=== PATIENT | female | born 1950 | race Caucasian/White ===

== ENCOUNTER 2016-03-14 10:26 | Outpatient (CLI) ==
[2012-08-09 14:56] VITALS: BP 120/70; TEMP 98
[2016-02-26 10:54] VITALS: BMI 33.3
--- NOTE | 2016-03-14 11:50 | US ---
EXAM: Ultrasound chest wall. HISTORY: Cyst of skin and subcutaneous tissue. Palpable and visible knots of the back. FINDINGS: Cuadra-scale ultrasound and color Doppler imaging was performed in the regions of interest described as the mid back. There were three nodular masses identified superficially in the regions of palpable abnormality. Th brody measured 3.9 x 1.9 x 3.9, 2.3 x 2.0 x 2.7 and 0.8 x 0.5 x 0.8 cm. These nodules have similar ap pearance (heterogeneous, relatively well circumscribed, slightly lobulated with no definite internal blood flow, positive posterior acoustic enhancement with a few small internal anechoic spaces). Etiology is uncertain although considerations would include a sebaceous cyst, hematomas or abscesses . Partially necrotic metastases less likely although not excluded. Correlate with clinical present ation and patient history. If more sensitive imaging diagnosis is indicated, consider correlation w ith enhanced CT or MRI. IMPRESSION: Three nodular collections or masses identified in the regions of interest as described.
== END 2016-03-14 10:27 | disposition home or self-care (01) ==
LOC: RAD 10:26
PROVIDERS: ATTEND General Practice
DX: L72.9 Follicular cyst of the skin and subcutaneous tissue, unspecified (principal)

== ENCOUNTER 2016-03-19 09:29 | Day surgery (SDC) ==
[2016-02-26 10:54] VITALS: BMI 33.3
[2016-03-19] MEDS ORDERED: LIDOCAINE 1%-EPI 1:100,000 10 ML (SURGERY) INJ ONE (10:40)
[2016-03-19 11:29] VITALS: BP 130/86; TEMP 98.7
--- NOTE | 2016-03-20 13:59 | OP ---
HISTORY OF PRESENT ILLNESS: 66 year old female patient was seen at the office as a referral of the [facility], Akilah Brenner. The patient had a sores in the back for about six weeks. She presented to [place] emergency room and was told that it would need a surgeon. She was prescribed antibiotics and also presented to [facility]. She was again advised that it needs to have a surgeon to incise and drain at the emergency room. The patient had three rounds of antibiotics when I saw her. The last antibiotic was Bactrim DS. An ultrasound showed four areas of collection or nodular areas. Upper larger lesion had begun to drain. The patient was scheduled for surgery after the ultrasound. PHYSICAL EXAMINATION: GENERAL: The patient today is alert with no distress. Her color is good and she denies any chest pain, abdominal pain, headaches or dizziness. FACE: Symmetrical and equal with no facial weakness. NECK: No masses. No bruit. LUNGS: Clear to auscultation in both sides. HEART: Audible and regular with good tones. No murmurs. ABDOMEN: Nontender. SKIN: The area in the back was inspected. It appeared more fluctuant than when I first saw her. Her medications were reviewed. ASSESSMENT: SEBACEOUS CYSTS TIMES TWO MIDBACK AREA, ONE LOWER SMALLER, UPPER AND LATERAL BIGGER. PLAN: INCISION AND DRAINAGE AND PACKING UNDER LOCAL ANESTHESIA This patient was advised about the need for further follow up of the area. This might produce scarring more than expected. PREOPERATIVE DIAGNOSIS: SEBACEOUS CYSTS, MULTIPLE MIDBACK AREA. MEDIAL AND LATERAL LEFT OF THE SPINE OPERATION: INCISION AND DRAINAGE TIMES TWO, UPPER AND LOWER. CULTURE AND SENSITIVITY SEPARATELY. POSTOPERATIVE DIAGNOSIS: SAME. SURGEON: GIOVANY CORRAL M.D. RUBY ON RAILS DEVELOPER: ANATOLIY NAVA OPERATION: The patient in a left lateral decubitus position was then prepped and draped for surgery. The area was anesthetized initially beginning with the smaller lower one. A transverse incision was then made until the cavity was entered and purulent material exuded, plus chunky whitish greyish material. Culture and sensitivity before aerobes and anaerobes were done. The area was then irrigated with Betadine and Saline. A spoon was used to remove the rest of the material in the cavity. There is some necrotic tissue in the cavity. The bigger lesion was then incised transversely carried into the pocket until purulent drainage exuded. The incision was then extended and a vertical incision was made. The cavity was irrigated with saline followed by Betadine and saline. A spoon was inserted to remove some of the remaining chunky material. The cavity was again irrigated with Betadine, followed with Saline. Both cavities were packed with 1/2 inch nu gauze. The patient tolerated the procedure well and no antibiotic is given. This patient is to see me this coming and before if there is any problem. ORI
[2016-03-24 19:07] LABS: ANAEROBIC CULTURE Final report (.)
[2016-03-24 19:07] LABS: ANAEROBIC CULTURE Final report (.)
[2016-03-25 08:57] LABS: ANAEROBIC CULTURE RESULT 1 Finegoldia magna (.)
[2016-03-25 08:57] LABS: ANAEROBIC CULTURE RESULT 1 Finegoldia magna (.)
== END 2016-03-19 11:40 | disposition home or self-care (01) ==
LOC: SURG 09:29
PROVIDERS: ATTEND General Practice
DX: L72.3 Sebaceous cyst (principal)
CPT/HCPCS: 10061; 36415; 87070; 87075

== ENCOUNTER 2016-03-25 11:13 | Outpatient (CLI) ==
[2012-08-09 14:56] VITALS: TEMP 98
[2016-02-26 10:54] VITALS: BMI 33.3
--- NOTE | 2016-03-25 11:38 | DI ---
EXAM: Two views of the left hip. History: Left hip pain. Findings: Osteopenia. No acute fracture or dislocation. No abnormal calcifications or radiopaque foreign bodies. The left hip joint space is preserved. Impression: No acute osseous abnormality and no significant degenerative joint disease of the left hip. Osteopenia.
== END 2016-03-25 11:14 | disposition home or self-care (01) ==
LOC: RAD 11:13
PROVIDERS: ATTEND General Practice
DX: M25.552 Pain in left hip (principal)

== ENCOUNTER 2016-05-02 10:59 | Emergency (ER) ==
[2016-05-02 11:03] VITALS: BP 113/74; TEMP 99.4; BMI 34.7
--- NOTE | 2016-05-02 11:13 | ED.PDOC ---
General ED Provider: Dr. ROBERT MEYER JR Chief Complaint: Respiratory Complaint Stated Complaint: COUGH GREEN, TEMP,CONGESTED RUNNY NOSE [End]2 days 99.4 117 20 94% 113/74 09/16 Time Seen by Physician: 11:12 Mode of Arrival: Walk-In Information Source: Patient Exam Limitations: No limitations Primary Care Provider: NICHOLAS GAXIOLA Nursing and Triage Documentation Reviewed and Agree: No Review of Systems - Review Of Systems Constitutional: Reports: Malaise, Weakness Eyes: Reports: No symptoms Ears, Nose, Mouth, Throat: Reports: Nose discharge, Throat pain Respiratory: Reports: Cough Cardiac: Reports: No symptoms GI: Reports: No symptoms : Reports: No symptoms Musculoskeletal: Reports: No symptoms Skin: Reports: No symptoms Neurological: Reports: No symptoms, Other (hx right leg weakness with cva) Endocrine: Reports: No symptoms Hematologic/Lymphatic: Reports: No symptoms All Other Systems: Other Past Medical History - Past Medical History Previously Healthy: Yes Endocrine: Reports: None Cardiovascular: Reports: Hypertension Respiratory: Reports: COPD Hematological: Reports: None Gastrointestinal: Reports: None Genitourinary: Reports: None Neuro/Psych: Reports: CVA, Anxiety, Depression Musculoskeletal: Reports: None Cancer: Reports: None Last Menstrual Period: NONE - Surgical History General Surgical History: Reports: Unknown - Family History Family History: Reports: Unknown - Social History Smoking Status: Never smoker Hx Substance Use: No Alcohol Screening: None Physical Exam - Physical Exam Appearance: Ill-appearing, Obese Ill-appearing: Moderate Pain Distress: Moderate Eyes: CASSIDY, EOMI, Conjunctiva inflammed ENT: Rhinorrhea, Erythema Neck: Supple Respiratory: Airway patent, Rhonchi, Wheezes Cardiovascular: RRR, Pulses normal, No rub, No murmur GI/: Soft, Nontender, No masses, Bowel sounds normal, No Organomegaly Musculoskeletal: Normal strength, ROM intact, No edema, No calf tenderness Skin: Warm, Dry, Normal color Neurological: Sensation intact, Motor intact, Reflexes intact, Cranial nerves intact, Alert, Oriented Psychiatric: Affect appropriate, Mood appropriate, Depressed (tearful descibing care of in [facility] and granddaughter- left by mother) Critical Care Note - Critical Care Note Total Time (mins): 0 Course - Course Orders, Labs, Meds: Orders Category Date Time Status Ceftriaxone Sodium [Rocephin] MEDS 05/02/16 11:24 Stat 1 gm IM ONCE STA Lidocaine HCl/Pf [Lidocaine 1 % Amp 5 ml (Sutures)] MEDS 05/02/16 11:24 Stat 2.1 ml IM ONCE STA Methylprednisolone Sod Succ/Pf [Solu-Medrol 125 mg] MEDS 05/02/16 11:24 Stat 125 mg IM ONCE STA Vital Signs: Temp Pulse Resp BP Pulse Ox 05/02/16 10:59 99.4 F 117 H 20 113/74 94 L Departure - Departure Time of Disposition: 11:24 Disposition: HOME SELF-CARE Discharge Problem: Bronchitis, URTI (acute upper respiratory infection) Instructions: Upper Respiratory Infection (ED), Abscess Follow-up (ED), Acute Bronchitis (ED) Condition: Good Pt referred to PMD for follow-up: Yes Additional Instructions: amocxil for one week robitussin DM or robitussin AC for cough recommend daily dressing change after cleansing area Prescriptions: Amoxicillin [Amoxil] 500 mg PO TID #21 capsule Guaifenesin/Codeine Phosphate [Robitussin AC Syrup] 10 ml PO Q6H PRN #240 ml PRN Reason: Cough Allergies/Adverse Reactions: Allergies meperidine [From Demerol] Adverse Reaction (Verified 05/02/16 11:03) oxycodone [From Percocet] Adverse Reaction (Verified 05/02/16 11:03) tramadol HCl [From Ultram] Adverse Reaction (Verified 05/02/16 11:03) Home Medications: Ambulatory Orders Alprazolam [Xanax] 0.5 mg PO TID PRN 01/30/14 Aspirin [Aspirin EC] 81 mg PO DAILYWM 01/30/14 Citalopram Hydrobromide [Celexa] 20 mg PO DAILY 01/30/14 Clopidogrel Bisulfate [Plavix] 75 mg PO DAILY 01/30/14 Enalapril Maleate [Vasotec] 10 mg PO DAILY 01/30/14 Omeprazole [Prilosec] 40 mg PO DAILY 01/30/14 Pravastatin Sodium [Pravachol] 20 mg PO BEDTIME 01/30/14 Verapamil HCl [Verapamil ER] 240 mg PO DAILY 01/30/14 Acetaminophen with Codeine [Tylenol With Codeine #3 Tablet] 1 each PO TID PRN Amoxicillin [Amoxil] 500 mg PO TID #21 capsule 05/02/16 Guaifenesin/Codeine Phosphate [Robitussin AC Syrup] 10 ml PO Q6H PRN #240 ml
[2016-05-02] MEDS ORDERED: ROCEPHIN IM STA (11:24)
[2016-05-02] MEDS ORDERED: SOLU-MEDROL 125 MG IM STA (11:24)
[2016-05-02] MEDS ORDERED: LIDOCAINE 1 % AMP 5 ML (SUTURES) IM STA (11:24)
== END 2016-05-02 12:11 | disposition home or self-care (01) ==
LOC: ED 10:59
DX: J20.9 Acute bronchitis, unspecified (principal); J06.9 Acute upper respiratory infection, unspecified; Z79.899 Other long term (current) drug therapy
CPT/HCPCS: 96372; 99282

== ENCOUNTER 2016-09-25 11:45 | Emergency (ER) | payer OTHER ==
[2016-09-25 11:51] VITALS: BP 131/76; TEMP 100.8; BMI 33.3
[2016-09-25 13:15] LABS: BASOPHILS # (AUTO) 0.1 K/uL (0-0.2); BASOPHILS % (AUTO) 0.8 % (0.0-3.0); EOSINOPHILS # (AUTO) 0.1 K/ul (0.0-0.7); EOSINOPHILS % (AUTO) 1.4 % (0.0-7.0); HEMATOCRIT 41.6 % (37.0-47.0); HEMOGLOBIN 14.2 g/dl (12.0-16.0); IMMATURE GRANULOCYTE % (AUTO) 0.2 % (0.0-5.0); LYMPHOCYTES # (AUTO) 1.8 K/uL (0.60-3.4); LYMPHOCYTES % (AUTO) 28.5 (10.0-50.0); MEAN CORPUSCULAR HGB CONC 34.1 (31.8-35.4); MEAN CORPUSCULAR VOLUME 85.1 fl (81.0-99.0); MONOCYTES # (AUTO) 0.7 K/uL (0.4-2.0); MONOCYTES % (AUTO) 11.4 (0-10); NEUTROPHILS # (AUTO) 3.6 K/ul (2.0-6.9); NEUTROPHILS % (AUTO) 57.7; PLATELET COUNT 251 10^3/uL (140-440); RED BLOOD COUNT 4.89 10^6/ul (4.20-5.40); WHITE BLOOD COUNT 6.22 K/ul (4.6-10.2)
[2016-09-25 13:29] LABS: BILIRUBIN,URINE Negative (NEGATIVE); KETONES,URINE Negative (NEGATIVE); LEUKOCYTE ESTERASE ,URINE 3+ (NEGATIVE); NITRITE,URINE Negative (NEGATIVE); PH,URINE 5.5 (5-9); PROTEIN,URINE Negative (NEGATIVE); URINE, BLOOD Negative (NEGATIVE)
[2016-09-25 13:35] LABS: ALBUMIN 4.2 g/dL (3.4-5.0); ALBUMIN/GLOBULIN RATIO 1.4; ANION GAP 16.9; BILIRUBIN,TOTAL 0.62 mg/dL (0.00-1.20); BUN/CREATININE RATIO 15.21; CALCIUM 9.4 mg/dL (8.2-10.2); CREATININE 0.92 mg/dL (0.60-1.30); POTASSIUM 3.9 mmol/L (3.5-5.10); TOTAL PROTEIN 7.2 g/dL (5.8-8.1)
[2016-09-25 13:36] LABS: ADD URINE MICROSCOPIC YES
[2016-09-25 13:37] LABS: BACTERIA,URINE 1+ (NOT PRESENT)
--- NOTE | 2016-09-25 14:16 | CT ---
EXAM: CT BRAIN HISTORY: Headache TECHNIQUE: CT brain without intravenous contrast. 5-mm axial sections with Reformations. COMPARISON: 01/18/2012 FINDINGS: There is mild generalized atrophy. Mild to moderate chronic microvascular disease. Tiny lacunar in farction right caudate nucleus. There is a focal region of encephalomalacia left frontal parietal j unction consistent with old infarction. These findings are stable. Brain otherwise is unremarkabl e without distinct evidence of hemorrhage or large vessel distribution recent ischemic infarction. There is no suggestion of acute hydrocephalus or subdural fluid collection. No mass or mass effect. Cranium is within normal limits. Mastoid air cells are aerated. The visualized paranasal sinuses are clear. IMPRESSION: No acute intracranial process.
--- NOTE | 2016-09-25 14:25 | ED.PDOC ---
General ED Provider: Dr. KATIE MARTINEZ Chief Complaint: Headache Stated Complaint: headache Time Seen by Physician: 12:00 (headache flaoters right left eye) Mode of Arrival: Walk-In Information Source: Patient Exam Limitations: No limitations Primary Care Provider: NICHOLAS GAXIOLA Nursing and Triage Documentation Reviewed and Agree: Yes (eye floaters are chronic issue for pt x 30 years ) Neurological Complaint Exam - Headache Complaint/Exam Onset: Gradual Duration: 1 day was mowing and became over heated Symptoms Are: Resolved Timing: Intermittent Episodes Lasting: Hours Worst Headache Ever: No Initial Severity: Moderate Current Severity: None Character: Reports: Dull Aggravating: Reports: None Alleviating: Reports: None Associated Signs and Symptoms: Denies: Dizziness, Seizure, Nausea, Vomiting, Sinus pressure, Fever, Neck pain, Neck stiffness, Decreased LOC, Visual changes Related History: Reports: Similar episode Related Surgical History: Reports: None SAH Risk Factors: Reports: None Meningitis Risk Factors: Reports: None SDH Risk Factors: Reports: None Temporal Arteritis Risk Factors: Reports: None Normal Head CT Within Last 12 Months: Yes Fundoscopic Exam: Present: Normal Findings Papilledema Present: No Temporal Artery Tenderness: Present: None Sinus Tenderness: Present: None TMJ Tenderness: Present: None Glascow Coma Scale (see protocol): 15 Meningeal Signs Positive: No Pain on Passive Flexion-Positive Kernig's: No ROM Limited In: No Limitiations Focal Weakness: Present: None Focal Sensory Loss: Present: None Gait: Normal Differential Diagnoses: Migraine Review of Systems - Review Of Systems Constitutional: Reports: No symptoms Eyes: Reports: No symptoms Ears, Nose, Mouth, Throat: Reports: No symptoms Respiratory: Reports: No symptoms Cardiac: Reports: No symptoms GI: Reports: No symptoms : Reports: No symptoms Musculoskeletal: Reports: No symptoms Skin: Reports: No symptoms Neurological: Reports: No symptoms Endocrine: Reports: No symptoms Hematologic/Lymphatic: Reports: No symptoms All Other Systems: Reviewed and Negative Past Medical History - Past Medical History Previously Healthy: Yes Endocrine: Reports: None Cardiovascular: Reports: Hypertension Respiratory: Reports: COPD Hematological: Reports: None Gastrointestinal: Reports: None Genitourinary: Reports: None Neuro/Psych: Reports: CVA, Anxiety, Depression Musculoskeletal: Reports: None Cancer: Reports: None Last Menstrual Period: menopause - Surgical History General Surgical History: Reports: Unknown - Family History Family History: Reports: Unknown - Social History Smoking Status: Never smoker Hx Substance Use: No Alcohol Screening: None Physical Exam - Physical Exam Appearance: Well-appearing, No pain distress, Well-nourished Eyes: CASSIDY, EOMI, Conjunctiva clear ENT: Ears normal, Nose normal, Oropharynx normal Respiratory: Airway patent, Breath sounds clear, Breath sounds equal, Respirations nonlabored Cardiovascular: RRR, Pulses normal, No rub, No murmur GI/: Soft, Nontender, No masses, Bowel sounds normal, No Organomegaly Musculoskeletal: Normal strength, ROM intact, No edema, No calf tenderness Skin: Warm, Dry, Normal color Neurological: Sensation intact, Motor intact, Reflexes intact, Cranial nerves intact, Alert, Oriented Psychiatric: Affect appropriate, Mood appropriate Interpretation - Radiology Interpretation Radiology Interpretation By: Radiologist Radiology Results: No acute changes Critical Care Note - Critical Care Note Total Time (mins): 0 Course - Course Hematology/Chemistry: 09/25/16 13:10 09/25/16 13:10 Orders, Labs, Meds: Lab Review 09/25/16 09/25/16 13:10 13:12 WBC 6.22 RBC 4.89 Hgb 14.2 Hct 41.6 MCV 85.1 MCH 29.0 MCHC 34.1 RDW Coeff of Noe 13.0 Plt Count 251 Immature Gran % (Auto) 0.2 Neut % (Auto) 57.7 Lymph % (Auto) 28.5 [place] % (Auto) 11.4 H Eos % (Auto) 1.4 Baso % (Auto) 0.8 Immature Gran # (Auto) 0.0 Neut # 3.6 Lymph # 1.8 [place] # 0.7 Eos # 0.1 Baso # 0.1 Sodium 141 Potassium 3.9 Chloride 106 Carbon Dioxide 22 L Anion Gap 16.9 BUN 14 Creatinine 0.92 Estimated GFR (MDRD) 61.00 BUN/Creatinine Ratio 15.21 Glucose 102 Lactic Acid 7.4 Calcium 9.4 Total Bilirubin 0.62 AST 18 ALT 18 Alkaline Phosphatase 59 Total Protein 7.2 Albumin 4.2 Globulin 3.0 Albumin/Globulin Ratio 1.40 Procalcitonin < 0.05 Urine Color Yellow Urine Clarity Slightly Urine pH 5.5 Ur Specific [place] 1.010 Urine Protein Negative Urine Glucose (UA) Negative Urine Ketones Negative Urine Blood Negative Urine Nitrite Negative Urine Bilirubin Negative Urine Urobilinogen 1.0 Ur Leukocyte Esterase 3+ Urine Microscopic RBC 2-5 Urine Microscopic WBC 5-10 Ur Squamous Epith Cells 5-10 Amorphous Sediment 1+ Urine Bacteria 1+ Hyaline Casts 0-2 Orders Category Date Time Status EKG-(ED ONLY) Stat CARDIO 09/25/16 12:33 Completed BLOOD CULTURE Stat LAB 09/25/16 13:10 Received CBC W/ AUTO DIFF Stat LAB 09/25/16 13:10 Completed COMPREHENSIVE METABOLIC PANEL Stat LAB 09/25/16 13:10 Completed EHRLICHIA DNA, PCR Stat LAB 09/25/16 13:10 Received LACTIC ACID Stat LAB 09/25/16 13:10 Completed LYME, WESTERN BLOT, SERUM Stat LAB 09/25/16 13:10 Received PROCALCITONIN Stat LAB 09/25/16 13:10 Completed URINALYSIS C & S IF INDICATED Stat LAB 09/25/16 13:12 Completed URINE CULTURE Stat LAB 09/25/16 13:[address] HEAD W/O CONTRAST Stat RADS 09/25/16 13:[address] IAC/ORBIT/P.FOSSA W/O CONTR Stat RADS 09/25/16 13:32 Ordered Vital Signs: Temp Pulse Resp BP Pulse Ox 09/25/16 11:46 100.8 F H 98 H 20 131/76 96 Departure - Departure Time of Disposition: 14:25 Disposition: HOME SELF-CARE Discharge Problem: Headache Instructions: Acute Headache (ED) Condition: Good Pt referred to PMD for follow-up: No Additional Instructions: Please call your Family Physician as soon as possible to schedule a follow-up appointment.Please call your Family Physician as soon as possible to schedule a follow-up appointment. Allergies/Adverse Reactions: Allergies meperidine [From Demerol] Adverse Reaction (Verified 09/25/16 11:53) oxycodone [From Percocet] Adverse Reaction (Verified 09/25/16 11:53) tramadol HCl [From Ultram] Adverse Reaction (Verified 09/25/16 11:53) Home Medications: Ambulatory Orders Alprazolam [Xanax] 0.5 mg PO TID PRN 01/30/14 Aspirin [Aspirin EC] 81 mg PO DAILYWM 01/30/14 Citalopram Hydrobromide [Celexa] 20 mg PO DAILY 01/30/14 Clopidogrel Bisulfate [Plavix] 75 mg PO DAILY 01/30/14 Enalapril Maleate [Vasotec] 10 mg PO DAILY 01/30/14 Omeprazole [Prilosec] 40 mg PO DAILY 01/30/14 Pravastatin Sodium [Pravachol] 20 mg PO BEDTIME 01/30/14 Verapamil HCl [Verapamil ER] 240 mg PO DAILY 01/30/14 Guaifenesin/Codeine Phosphate [Robitussin AC Syrup] 10 ml PO Q6H PRN #240 ml
--- NOTE | 2016-09-25 14:30 | CT ---
EXAM: CT scan of the orbits without contrast HISTORY: Eye floaters TECHNIQUE: Helical imaging of the orbits was performed without contrast. 2 mm thin axial images an d coronal and sagittal images in bone windows were provided for interpretation. Additional axial sof t tissue images were provided. FINDINGS: No definite soft tissue masses are seen. There is a normal appearance of the retro-orbit al fat. No acute abnormalities are seen within the visualized extraocular musculature. The periorb ital soft tissues are normal. The paranasal sinuses and mastoid air cells are clear. The visualized skull base appears normal. The orbital floor, inferior orbital rim appear intact. No acute abnorma lities are seen within the medial and lateral chaudhary of the orbits. IMPRESSION: No acute abnormalities are seen within the orbits.
[2016-09-27 03:53] LABS: IGG P18 AB Absent (.); IGG P23 AB Absent (.); IGG P28 AB Absent (.); IGG P30 AB Absent (.); IGG P39 AB Absent (.); IGG P41 AB Present (.); IGG P45 AB Absent (.); IGG P58 AB Absent (.); IGG P66 AB Present (.); IGG P93 AB Absent (.); IGM P39 AB Absent (.); IGM P41 AB Present (.)
[2016-09-27 10:13] LABS: LYME IGG WB INTERP Negative (.); LYME IGM WB INTERP Negative (.)
== END 2016-09-25 14:50 | disposition home or self-care (01) ==
LOC: ED 11:45
DX: R51 Headache (principal); I10 Essential (primary) hypertension; J44.9 Chronic obstructive pulmonary disease, unspecified; Z86.73 Personal history of transient ischemic attack (TIA), and cerebral infarction without residual deficits; Z79.899 Other long term (current) drug therapy
CPT/HCPCS: 36415; 80053; 81001; 83605; 84145; 85025; 86617; 87040; 87086; 87798; 93005; 93010; 99283

== ENCOUNTER 2016-11-14 11:34 | Emergency (ER) ==
[2016-11-14 11:39] VITALS: BP 122/74; TEMP 97.9; BMI 33.6
--- NOTE | 2016-11-14 12:00 | ED.PDOC ---
General ED Provider: Dr. KEON CARRANZA Chief Complaint: Sore Throat Stated Complaint: Hoarse x 3-4 days, sore throat since awakening this AM. Exposed to strep 4 days ago. Time Seen by Physician: 11:50 Mode of Arrival: Walk-In Information Source: Patient Exam Limitations: No limitations Primary Care Provider: NICHOLAS GAXIOLA Nursing and Triage Documentation Reviewed and Agree: Yes Review of Systems - Review Of Systems Constitutional: Reports: No symptoms Eyes: Reports: No symptoms Ears, Nose, Mouth, Throat: Reports: Throat pain Respiratory: Reports: No symptoms Cardiac: Reports: No symptoms GI: Reports: No symptoms Musculoskeletal: Reports: No symptoms Skin: Reports: No symptoms Neurological: Reports: No symptoms Hematologic/Lymphatic: Reports: No symptoms All Other Systems: Reviewed and Negative Past Medical History - Past Medical History Previously Healthy: Yes Endocrine: Reports: None Cardiovascular: Reports: Hypertension Respiratory: Reports: COPD Hematological: Reports: None Gastrointestinal: Reports: None Genitourinary: Reports: None Neuro/Psych: Reports: CVA, Anxiety, Depression Musculoskeletal: Reports: None Cancer: Reports: None Last Menstrual Period: N/A - Surgical History General Surgical History: Reports: Unknown - Family History Family History: Reports: Unknown - Social History Smoking Status: Never smoker Hx Substance Use: No Alcohol Screening: None - Immunizations Tetanus Shot up to Date: No Physical Exam - Physical Exam Appearance: Well-appearing Eyes: CASSIDY, EOMI, Conjunctiva clear ENT: Ears normal, Nose normal, Oropharynx normal, Erythema Neck: Supple Respiratory: Airway patent, Breath sounds clear, Breath sounds equal, Respirations nonlabored Cardiovascular: RRR, Pulses normal, No rub, No murmur GI/: Soft, Nontender, No masses, Bowel sounds normal, No Organomegaly Skin: Warm, Dry, Normal color Neurological: Sensation intact, Motor intact, Reflexes intact, Cranial nerves intact, Alert, Oriented Psychiatric: Affect appropriate, Mood appropriate Critical Care Note - Critical Care Note Total Time (mins): 0 Course - Course Orders, Labs, Meds: Orders Category Date Time Status STREP SCREEN Stat LAB 11/14/16 11:45 Ordered result: negative Vital Signs: Temp Pulse Resp BP Pulse Ox 11/14/16 11:35 97.9 F 66 20 122/74 98 Departure - Departure Time of Disposition: 12:50 Disposition: HOME SELF-CARE Discharge Problem: Sore throat symptom, Viral pharyngitis Discharge Problem: (Ruled Out): Otitis media Instructions: Pharyngitis (ED) Condition: Good Pt referred to PMD for follow-up: No (see PCP if no better in 3 days) Allergies/Adverse Reactions: Allergies meperidine [From Demerol] Adverse Reaction (Verified 11/14/16 11:38) oxycodone [From Percocet] Adverse Reaction (Verified 11/14/16 11:38) tramadol HCl [From Ultram] Adverse Reaction (Verified 11/14/16 11:38) Home Medications: Ambulatory Orders Alprazolam [Xanax] 0.5 mg PO TID PRN 01/30/14 Aspirin [Aspirin EC] 81 mg PO DAILYWM 01/30/14 Citalopram Hydrobromide [Celexa] 20 mg PO DAILY 01/30/14 Clopidogrel Bisulfate [Plavix] 75 mg PO DAILY 01/30/14 Enalapril Maleate [Vasotec] 10 mg PO DAILY 01/30/14 Omeprazole [Prilosec] 40 mg PO DAILY 01/30/14 Pravastatin Sodium [Pravachol] 20 mg PO BEDTIME 01/30/14 Verapamil HCl [Verapamil ER] 240 mg PO DAILY 01/30/14
== END 2016-11-14 13:05 | disposition home or self-care (01) ==
LOC: ED 11:34
DX: J02.9 Acute pharyngitis, unspecified (principal)
CPT/HCPCS: 87651; 87880; 99283

== ENCOUNTER 2017-03-04 13:23 | Outpatient (CLI) | payer OTHER ==
[2012-08-09 14:56] VITALS: TEMP 98
--- NOTE | 2017-03-04 14:31 | US ---
EXAM: Ultrasound bilateral carotid duplex. HISTORY: Carotid artery stenosis. COMPARISON: 04/09/2012. TECHNIQUE: Multiple madrigal scale and color Doppler images were obtained. FINDINGS: Please note that estimates of internal carotid artery stenoses are based upon NASCET crite terra. Right carotid: Mild plaquing noted without 50% or greater stenosis. Peak systolic velocity measurem ent in the right internal carotid artery is 1.0 meters per second. Right internal to common carotid artery peak systolic velocity ratio measures 1.3. End diastolic velocity measurement in the right in ternal carotid artery is 0.3 meters per second. Flow in the right vertebral artery is antegrade. Left carotid: Mixed plaquing without 50% or greater stenosis. Peak systolic velocity measurement in the left internal carotid artery is 0.7 meters per second. Left internal to common carotid artery p eak systolic velocity ratio measures 0.8. End diastolic velocity measurement in the left internal ca rotid artery measures 0.2 meters per second. Flow in the left vertebral artery is antegrade. IMPRESSION: 1. No evidence for 50% or greater stenosis in the right or left internal carotid artery. 2. Antegrade flow in both vertebral arteries.
== END 2017-03-04 13:24 | disposition home or self-care (01) ==
LOC: RAD 13:23
PROVIDERS: ATTEND Physician Assistant Medical
DX: I65.29 Occlusion and stenosis of unspecified carotid artery (principal)

== ENCOUNTER 2017-05-15 08:16 | Day surgery (SDC) ==
[2017-05-15 08:52] VITALS: TEMP 97.2
[2017-05-15] MEDS ORDERED: LIDOCAINE 1%-EPI 1:100,000 10 ML (SURGERY) INJ ONE (09:20)
[2017-05-15 10:03] VITALS: BP 136/62
--- NOTE | 2017-05-21 11:21 | OP ---
DATE OF PROCEDURE: 05/16/17 INDICATIONS: 67-year-old female is scheduled for excision of lesions times two. This patient was advised about the possibility of infection following surgery. PREOPERATIVE DIAGNOSES: 1. Pigmented lesion, posterolateral chest along the posterior axillary line. 2. Subcutaneous mass to the left of the T12 or L1. It is firm and smooth with maybe an opening of the skin most likely a cyst. POSTOPERATIVE DIAGNOSES: 1. Pigmented lesion left posterolateral chest excised, two cysts to the left of T12 or L1 level, cyst, sebaceous. DESCRIPTION OF PROCEDURE: With the patient in the prone position, she was prepped and draped for surgery. The area that is anesthetized with 1% Xylocaine and excised elliptically. The edges were then approximated with 4-0 Vicryl and Steri-Strips. The area then in the T12-11 or L1 area was then anesthetized and incision was made over to the cyst wall. The cyst was then dissected both superiorly and inferiorly until it was completely removed. The bleeders were cauterized. The area was irrigated with Betadine followed by Saline and then approximated with 4-0 Vicryl and Steri -Strips. The patient tolerated the procedure well and was advised to see me in one week at the office or before if there are any signs of infection such as pain, drainage or swelling. ORI
== END 2017-05-16 10:30 | disposition home or self-care (01) ==
LOC: SURG 08:16
PROVIDERS: ATTEND General Practice
DX: L72.3 Sebaceous cyst (principal); L72.0 Epidermal cyst
CPT/HCPCS: 11402

== ENCOUNTER 2017-06-10 14:16 | Outpatient (CLI) | payer OTHER ==
[2012-08-09 14:56] VITALS: TEMP 98
== END 2017-06-10 14:17 | disposition home or self-care (01) ==
LOC: FCC-LAB 14:16
PROVIDERS: ATTEND General Practice
DX: L02.91 Cutaneous abscess, unspecified (principal)
CPT/HCPCS: 87070

== ENCOUNTER 2017-07-17 08:52 | Outpatient (CLI) ==
[2012-08-09 14:56] VITALS: TEMP 98
== END 2017-07-17 08:53 | disposition home or self-care (01) ==
LOC: CAR 08:52
PROVIDERS: ATTEND General Practice
DX: R00.2 Palpitations (principal); I10 Essential (primary) hypertension
CPT/HCPCS: 93227

== ENCOUNTER 2017-07-24 16:11 | Outpatient (CLI) | payer OTHER ==
[2012-08-09 14:56] VITALS: TEMP 98
== END 2017-07-24 16:12 | disposition home or self-care (01) ==
LOC: FCC-LAB 16:11
PROVIDERS: ATTEND General Practice
DX: I10 Essential (primary) hypertension (principal); I47.9 Paroxysmal tachycardia, unspecified; I20.9 Angina pectoris, unspecified; Z79.899 Other long term (current) drug therapy
CPT/HCPCS: 36415

== ENCOUNTER 2017-07-31 10:57 | Outpatient (CLI) | payer OTHER ==
[2012-08-09 14:56] VITALS: TEMP 98
--- NOTE | 2017-07-31 11:34 | CT ---
EXAM: CT head without contrast. HISTORY: Transient cerebral ischemia. COMPARISON: 09/25/2016. TECHNIQUE: Multiple axial images of the brain were obtained from the skull base through the vertex w ithout intravenous contrast. Multiplanar reformats were provided. FINDINGS: There is no intracranial hemorrhage or extraaxial collection. The madrigal-white differentiat ion is maintained without evidence for acute large vascular territory infarction. Focal encephalomal acia in the left parietal lobe is stable. There is a new focus of encephalomalacia in the posterior left temporal lobe on axial image 15 although this is new from prior examination. Old lacunar infarc tions in the bilateral basal ganglia and left cerebellum are stable. There are areas of periventricu lar and subcortical white matter low attenuation. The cortical sulci and cerebral ventricles are sym metrically enlarged. The basal cisterns are well visualized. There is no hydrocephalus, mass effect , or midline shift. The paranasal sinuses and mastoid air cells are clear. The calvarium is intact. IMPRESSION: 1. No acute intracranial hemorrhage or large vascular territory infarction. Consider MRI if there is concern for acute infarction. 2. Interval development of encephalomalacia in the left posterior temporal lobe since the prior stud y. Otherwise stable chronic areas of ischemia and atrophy.
== END 2017-07-31 10:58 | disposition home or self-care (01) ==
LOC: RAD 10:57
PROVIDERS: ATTEND Physician Assistant Medical
DX: G45.8 Other transient cerebral ischemic attacks and related syndromes (principal)

== ENCOUNTER 2017-08-05 12:02 | Outpatient (CLI) ==
[2012-08-09 14:56] VITALS: TEMP 98
--- NOTE | 2017-08-05 13:26 | MRI ---
EXAM: MRI brain without IV contrast. DATE: 05 Aug 2017. HISTORY: TIA. Trouble saying words that she is thinking. TECHNIQUE: Sagittal T1W, axial T2W, axial FLAIR, axial T1W, axial DWI, and coronal T2W GRE sequences of the brain were obtained using 1.2 Niyah magnet. No IV contrast. COMPARISON: CT head 31 Jul 2017. MRI brain 11 August 2014. FINDINGS: The ventricles are normal in size and configuration. Sylvian fissures are mildly prominen t. CSF spaces overlying the superior vertex of the brain are mildly enlarged. Some frontal and hilda etal lobe sulci are slightly prominent. No midline shift, mass effect or loculated extra-axial fluid collection is apparent. A 8 x 18 x 15 mm, DWI bright focus in the left occipital lobe near the temp oral occipital junction is new since previous MRI. No other DWI bright signal abnormalities are obse rved. No acute hemorrhage or neoplasm is identified. Small, confluent rim of T2W/FLAIR hyperintensi ty is observed in the white matter abutting each lateral ventricle. Multiple other 2 mm to 2 cm, T2W /FLAIR bright foci scattered in the garland radiata, centrum semiovale and subcortical white matter ar e similar to August 2014. Chronic bilateral caudate and left frontal parietal garland radiata infarcts are redemonstrated. The madrigal - white matter differentiation is otherwise normal. Several 2-5 mm, T2 W/FLAIR bright foci are demonstrated in the lexie. The 7th/8th cranial nerve complexes, cerebellopont ine angles, and visible cervical spinal cord are normal. There is no cerebellar tonsillar ectopia. The pituitary gland is normal in size and signal. Corpus callosum is normal in size and configuratio n. Flow voids are present in the major intracranial arteries and in the dural venous sinuses. No an eurysm, AVM or dural venous sinus thrombosis is apparent. Appearance of the lens of each eye suggest s prior cataract surgery. No other orbit abnormality is identified. Right mastoid air cells are unr emarkable. A few inferior left mastoid air cells have T2W bright, T1W intermediate signal. There is minor mucosal thickening within multiple ethmoid air cells. No paranasal sinus opacification or air- fluid level is revealed. No neck mass or lymphadenopathy is detected. Marked thickening of the inne r table of the frontal bone appears benign. There is also benign calcification along the anterior as pect of the falx cerebri. No calvarial neoplasm or acute fracture is evident. Slight flattened appe arance of the superior aspect of left mandibular condyle could reflect minor TMJ disease. IMPRESSIONS: 1. Acute, nonhemorrhagic infarct near the temporo-occipital junction. No midline shift or herniatio n. 2. 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 3. No acute hemorrhage, neoplasm or hydrocephalus. 4. Moderate cerebral and minor brainstem leukomalacia - likely a small vessel disease versus chronic hypertensive encephalopathy. 5. Minor bilateral ethmoid sinus mucosal disease. 6. Marked hyperostosis frontalis interna (benign). 7. Minor left mastoid air cells effusion vs mastoiditis. Critical result: Report called to Akilah Brenner at 1313 hrs, 05 Aug 2017.
--- NOTE | 2017-08-05 13:27 | DEXA ---
EXAM: Bone densitometry. History: Postmenopausal. Findings: Evaluation of the lumbar spine reveals a total bone mineral density of 1.018 grams per centimeter squ ared with T-score of negative 1.4. Evaluation of the left hip reveals a total bone mineral density of 0.891 grams per centimeter squared with T-score of negative 0.9. T-score within the left femoral neck region is negative 1.7. Evaluation of the right hip reveals a total bone mineral density of 0.885 grams per centimeter square d with T-score of negative 1.0. T-score within the right femoral neck region is negative 1.7. Impression: 1. Normal total bone mineral density of the lumbar spine and bilateral hips. 2. Focal osteopenia within the bilateral femoral neck regions
== END 2017-08-05 12:03 | disposition home or self-care (01) ==
LOC: RAD 12:02
PROVIDERS: ATTEND Physician Assistant Medical
DX: Z78.0 Asymptomatic menopausal state (principal); G45.8 Other transient cerebral ischemic attacks and related syndromes

== ENCOUNTER 2017-09-22 09:47 | Outpatient (CLI) ==
[2012-08-09 14:56] VITALS: TEMP 98
== END 2017-09-22 09:48 | disposition home or self-care (01) ==
LOC: LAB 09:47
PROVIDERS: ATTEND General Practice
DX: I10 Essential (primary) hypertension (principal); I47.9 Paroxysmal tachycardia, unspecified; I63.9 Cerebral infarction, unspecified; E66.9 Obesity, unspecified; Z79.899 Other long term (current) drug therapy
CPT/HCPCS: 36415; 80053; 80061; 81001; 83525; 85025; 87086

== ENCOUNTER 2017-10-06 14:43 | Outpatient (CLI) ==
[2012-08-09 14:56] VITALS: TEMP 98
== END 2017-10-06 14:44 | disposition home or self-care (01) ==
LOC: FCC-LAB 14:43
PROVIDERS: ATTEND General Practice
DX: Z79.899 Other long term (current) drug therapy (principal)
CPT/HCPCS: 81001

== ENCOUNTER 2017-10-09 11:15 | Emergency (ER) ==
[2017-10-09 11:34] VITALS: BP 136/77; TEMP 99.5; BMI 33.9
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
== END 2017-10-09 12:45 | disposition home or self-care (01) ==
LOC: ED 11:15
DX: M54.2 Cervicalgia (principal); R51 Headache; S09.90XA Unspecified injury of head, initial encounter; S13.9XXA Sprain of joints and ligaments of unspecified parts of neck, initial encounter; V89.2XXA Person injured in unspecified motor-vehicle accident, traffic, initial encounter
CPT/HCPCS: 99283

== ENCOUNTER 2018-01-26 13:20 | Outpatient (CLI) | payer OTHER ==
[2012-08-09 14:56] VITALS: TEMP 98
--- NOTE | 2018-01-26 13:48 | US ---
EXAM: Nonvascular ultrasound of the left upper extremity. History: Left forearm palpable abnormality. Technique: Multiple sonographic images through the left forearm were obtained. Color duplex Doppler was used to interrogate vascular flow. Findings: No masses, cysts or fluid collections identified. Impression: No sonographic abnormalities
== END 2018-01-26 13:21 | disposition home or self-care (01) ==
LOC: RAD 13:20
PROVIDERS: ATTEND Physician Assistant Medical
DX: L72.0 Epidermal cyst (principal)
CPT/HCPCS: 76882

== ENCOUNTER 2018-03-19 16:33 | Emergency (ER) ==
[2018-03-19 16:37] VITALS: BP 128/85; TEMP 97.9; BMI 34.7
--- NOTE | 2018-03-19 18:19 | ED.PDOC ---
General ED Provider: Dr. KATIE MARTINEZ Chief Complaint: Fall Stated Complaint: fall, head injury Time Seen by Physician: 16:34 Mode of Arrival: Walk-In Information Source: Patient Exam Limitations: No limitations Primary Care Provider: NICHOLAS GAXIOLA Nursing and Triage Documentation Reviewed and Agree: Yes Does patient meet sepsis criteria?: No System Inflammatory Response Syndrome: Not Applicable Sepsis Protocol: For patient's 13 years and over: Temp is 96.8 and below OR 101 and greater Pulse >90 BPM Resp >20/minute Acutely Altered Mental Status Are patient's symptoms suggestive of a new infection, such as: -Pneumonia -Skin, Soft Tissue -Endocarditis -UTI -Bone, Joint Infection -Implantable Device -Acute Abdominal Infection -Wound Infection -Meningitis -Blood Stream Catheter Infection -Unknown Trauma/Injury Complaint Exam - Trauma Complaint/Exam Location of Pain or Injury: Reports: Head, Neck Mechanism of Injury: Reports: Fall Onset/Duration: today Symptoms Are: Still present Timing of Treatment: Immediate Initial Severity: Mild Current Severity: Mild Character: Reports: Aching Aggravating: Reports: None Alleviating: Reports: None Associated Signs and Symptoms: Denies: LOC, Confusion, Memory loss, Lethargy, Vomiting, Bleeding, Bruising, Swelling, Extremity disuse, Painful respiration, Hoarseness, Dysphagia, Hemoptysis, Significant blood loss Related Surgical History: Reports: None Nexus Low Risk Criteria: No post-midline CS tender, No evidence of intoxicat., No Altered LOC, No focal neuro deficit, No distracting injuries Immobilization Removed Post Exam: No Glascow Coma Scale (see protocol): 15 Review of Systems - Review Of Systems Constitutional: Reports: No symptoms Eyes: Reports: No symptoms Ears, Nose, Mouth, Throat: Reports: No symptoms Respiratory: Reports: No symptoms Cardiac: Reports: No symptoms GI: Reports: No symptoms : Reports: No symptoms Musculoskeletal: Reports: Neck pain Skin: Reports: No symptoms Neurological: Reports: Headache Endocrine: Reports: No symptoms Hematologic/Lymphatic: Reports: No symptoms All Other Systems: Reviewed and Negative Past Medical History - Past Medical History Previously Healthy: Yes Endocrine: Reports: None Cardiovascular: Reports: Hypertension Respiratory: Reports: COPD Hematological: Reports: None Gastrointestinal: Reports: None Genitourinary: Reports: None Neuro/Psych: Reports: CVA, Anxiety, Depression Musculoskeletal: Reports: None Cancer: Reports: None Last Menstrual Period: n/a - Surgical History General Surgical History: Reports: Unknown - Family History Family History: Reports: Unknown - Social History Smoking Status: Never smoker Hx Substance Use: No Alcohol Screening: None Physical Exam - Physical Exam Appearance: Well-appearing, No pain distress, Well-nourished Eyes: CASSIDY, EOMI, Conjunctiva clear ENT: Ears normal, Nose normal, Oropharynx normal Respiratory: Airway patent, Breath sounds clear, Breath sounds equal, Respirations nonlabored Cardiovascular: RRR, Pulses normal, No rub, No murmur GI/: Soft, Nontender, No masses, Bowel sounds normal, No Organomegaly Musculoskeletal: Normal strength, ROM intact, No edema, No calf tenderness Skin: Warm, Dry, Normal color Neurological: Sensation intact, Motor intact, Reflexes intact, Cranial nerves intact, Alert, Oriented Psychiatric: Affect appropriate, Mood appropriate Interpretation - Radiology Interpretation Radiology Interpretation By: Radiologist Critical Care Note - Critical Care Note Total Time (mins): 0 Course - Course Orders, Labs, Meds: Orders Category Date Time Status CT CERVICAL SPINE W/O CONTRAST Stat RADS 03/19/18 17:[address] HEAD W/O CONTRAST Stat RADS 03/19/18 17:15 Ordered Vital Signs: Temp Pulse Resp BP Pulse Ox 03/19/18 16:34 97.9 F 86 20 128/85 97 Departure - Departure Time of Disposition: 19:00 Disposition: HOME SELF-CARE Discharge Problem: Head injury Qualifiers: Encounter type: initial encounter Qualified Code(s): S09.90XA - Unspecified injury of head, initial encounter Sprain, neck Qualifiers: Encounter type: initial encounter Qualified Code(s): S13.9XXA - Sprain of joints and ligaments of unspecified parts of neck, initial encounter Instructions: Head Injury (ED) Condition: Good Pt referred to PMD for follow-up: Yes IPMP verified?: No Additional Instructions: Please call your Family Physician as soon as possible to schedule a follow-up appointment. Allergies/Adverse Reactions: Allergies meperidine [From Demerol] Adverse Reaction (Verified 03/19/18 16:38) oxycodone [From Percocet] Adverse Reaction (Verified 03/19/18 16:38) tramadol HCl [From Ultram] Adverse Reaction (Verified 03/19/18 16:38) Home Medications: Ambulatory Orders Alprazolam [Xanax] 0.5 mg PO TID PRN 01/30/14 Aspirin [Aspirin EC] 81 mg PO DAILYWM 01/30/14 Citalopram Hydrobromide [Celexa] 20 mg PO DAILY 01/30/14 Clopidogrel Bisulfate [Plavix] 75 mg PO DAILY 01/30/14 Enalapril Maleate [Vasotec] 10 mg PO DAILY 01/30/14 Pravastatin Sodium [Pravachol] 20 mg PO BEDTIME 01/30/14 Verapamil HCl [Verapamil ER] 240 mg PO DAILY 01/30/14
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
--- NOTE | 2018-03-19 18:55 | CT ---
EXAM: CT cervical spine without contrast HISTORY: Fall, neck pain TECHNIQUE: Multi-slice transaxial helical with coronal and sagittal reformatted views. COMPARISON: 10/09/2017. FINDINGS: The bones are osteopenic which can limit exam for subtle nondisplaced fracture. The visualized verte bral body heights appear preserved. Mild to moderate multilevel disc space narrowing with endplate o steophytosis is seen. No evidence of listhesis is seen. Mild multilevel bilateral facet osteoarthri tis is present. No evidence of displaced cervical spine fracture is seen. Mild multilevel central ca nal narrowing is seen secondary to transverse spondylotic ridge. No critical neural foraminal stenos is is seen. Lung apices appear clear. Carotid atherosclerosis is present. Visualized mastoid air cells appear w ell aerated. IMPRESSION: 1. No acute osseous abnormality. 2. Mild to moderate multilevel cervical spondylosis. 3. Osteopenia.
== END 2018-03-19 18:58 | disposition home or self-care (01) ==
LOC: ED 16:33
DX: S09.90XA Unspecified injury of head, initial encounter (principal); S13.9XXA Sprain of joints and ligaments of unspecified parts of neck, initial encounter; W19.XXXA Unspecified fall, initial encounter; Z86.73 Personal history of transient ischemic attack (TIA), and cerebral infarction without residual deficits
CPT/HCPCS: 99283